=== PATIENT | male | born 1975 | race Caucasian/White ===

== ENCOUNTER 2022-04-10 05:41 | Emergency (ER) | payer OTHER ==
[~2022-04-10] VITALS: Ht 182.9 cm; Wt 95.5 kg
[2022-04-10 05:55] VITALS: BP 127/91
[2022-04-10] MEDS ORDERED: IPRATROPIUM BROM 0.5 MG/2.5ML INH SOL NEB ONE (06:15)
[2022-04-10] MEDS ORDERED: ALBUTEROL SULF 2.5 MG/0.5ML(0.5%) NEB SOLN NEB ONE (06:15)
[2022-04-10] MEDS ORDERED: ALBUTEROL MEDNEB 2.5 mg/3ml NEB ONE (06:16)
== END 2022-04-10 08:33 | disposition left against medical advice (07) ==
LOC: ER 05:41
DX: R06.02 Shortness of breath (principal); R05.9 Cough, unspecified; R09.81 Nasal congestion; Z53.21 Procedure and treatment not carried out due to patient leaving prior to being seen by health care provider
CPT/HCPCS: 71045; 94640; J7644